=== PATIENT | female | born 1960 | race African-American/Black ===

== ENCOUNTER 2017-07-30 07:23 | Inpatient (IN) | payer MEDICAID ==
[~2017-07-30] VITALS: Ht 167.6 cm; Wt 113.9 kg
[2017-07-30] MEDS ORDERED: IODIXANOL 320MG/ML 100ML BTL IV ONE (08:02)
[2017-07-30] MEDS ORDERED: LIDOCAINE 2%HCL (LOCAL ANESTH.) INJ 20ML MDV ONE (08:02)
[2017-07-30] MEDS ORDERED: MIDAZOLAM HCL 1MG/1ML-2 ML VIAL ONE (08:15)
[2017-07-30] MEDS ORDERED: fentaNYL CITRATE 100 MCG/2 ML VL ONE (08:15)
[2017-07-30] MEDS ORDERED: ANGIOMAX 250 MG VIAL IV ONE ×2 (08:15→08:30)
[2017-07-30] MEDS ORDERED: VERAPAMIL 2.5MG/ML INJ 2ML VIAL IV ONE (08:15)
[2017-07-30] MEDS ORDERED: IOHEXOL 350 MG/ML 100ML IJ ONE (08:15)
[2017-07-30] MEDS ORDERED: SODIUM CHL 0.9% 50 ML ONE (08:30)
[2017-07-30] MEDS ORDERED: ASPirin 325 MG TAB ONE (08:38)
[2017-07-30] MEDS ORDERED: CLOPIDOGREL 300 MG TAB ONE (08:38)
[2017-07-30] MEDS ORDERED: OMEP20CA74 PO (09:12)
[2017-07-30] MEDS ORDERED: METF-371 PO (09:12)
[2017-07-30] MEDS ORDERED: GLIP-115 PO (09:12)
[2017-07-30] MEDS ORDERED: ASPI1TAB37 PO (09:12)
[2017-07-30] MEDS ORDERED: GABA300C10 PO (09:12)
[2017-07-30] MEDS ORDERED: TRAM50TA2 PO (09:12)
[2017-07-30] MEDS ORDERED: INSLANTI SC (09:12)
[2017-07-30] MEDS ORDERED: ATOR20TA PO (09:12)
[2017-07-30] MEDS ORDERED: CLOP75TA28 PO (09:12)
[2017-07-30] MEDS ORDERED: ENAL20TA70 PO (09:12)
[2017-07-30] MEDS ORDERED: LISI2.5T47 PO (09:12)
[2017-07-30] MEDS ORDERED: traMADol HCL 50 MG TAB PO PRN (09:15)
[2017-07-30] MEDS ORDERED: HYDROcodone-ACET 5/325MG TAB PO PRN (09:15)
[2017-07-30] MEDS ORDERED: MORPHINE SULF INJ 2 MG/ML SYRINGE 1ML IV PRN (09:15)
[2017-07-30] MEDS ORDERED: NITROGLYCERIN 0.4 MG SL TAB SL PRN ×2 (09:15→11:00)
[2017-07-30] MEDS ORDERED: ACETAMINOPHEN 500 MG TAB PO PRN (09:15)
[2017-07-30] MEDS ORDERED: DEXTROSE (50%) 50ML SYRG IV PRN (09:30)
[2017-07-30] MEDS ORDERED: glipiZIDE 5 MG TAB ONE (09:57)
[2017-07-30] MEDS ORDERED: LISINOPRIL 5 MG TAB ONE (09:57)
[2017-07-30] MEDS ORDERED: PANTOPRAZOLE 40 MG TAB PO ONE (09:57)
[2017-07-30] MEDS: glipiZIDE 5 MG TAB PO SCH (10:00)
[2017-07-30] MEDS ORDERED: PATIENTS OWN MEDICATION (Enalapril Maleate 1 TAB) PO SCH (10:00)
[2017-07-30] MEDS ORDERED: PATIENTS OWN MEDICATION (Lisinopril 2.5 MG) PO SCH (10:00)
[2017-07-30] MEDS ORDERED: OMEPRAZOLE 20MG/10ML ORAL SUSP PO SCH (10:00)
[2017-07-30] MEDS: PANTOPRAZOLE 40 MG TAB PO SCH (10:06)
[2017-07-30] MEDS: LISINOPRIL 5 MG TAB PO SCH (10:07)
[2017-07-30] MEDS ORDERED: MORPHINE SULFATE 10 MG/ML INJ 1ML SDV IV PRN (11:00)
[2017-07-30] MEDS: InsuLIN REG 1unit/0.01ml Soln (100units/ml) SC SCH ×3 (12:29→21:33)
[2017-07-30] MEDS: ACCU-CHEK COMFORT CURVE STRIP VI SCH ×3 (12:29→21:34)
[2017-07-30] MEDS: SODIUM CHLOR 0.9% PF (SALINE LOCK) 10ML VIAL IV SCH ×2 (14:00→21:32)
[2017-07-30 16:41] VITALS: BP 123/68
[2017-07-30] MEDS: GABAPENTIN 300 MG CAP PO SCH ×2 (16:43→21:32)
[2017-07-30 22:00] VITALS: BP 114/62
[2017-07-30] MEDS ORDERED: INSULIN GLARGINE 40 UNIT SC SCH (22:00)
[2017-07-30] MEDS ORDERED: ATORVASTATIN 20 MG TAB PO SCH (22:00)
[2017-07-30] MEDS ORDERED: INSULIN DETEMIR(LEVEMIR) 1unit/0.01ml Soln (100units/ml) SC SCH (22:00)
[2017-07-31 05:00] VITALS: BP 133/67
[2017-07-31] MEDS: SODIUM CHLOR 0.9% PF (SALINE LOCK) 10ML VIAL IV SCH ×2 (05:35→15:00)
[2017-07-31] MEDS: GABAPENTIN 300 MG CAP PO SCH ×2 (05:35→15:00)
[2017-07-31 05:39] LABS: Basophils # (auto) 0 uL; Basophils % (auto) 0.4 % (0.0-2.0); Eosinophils # (auto) 0.2 uL; Eosinophils % (auto) 3.1 % (0.0-7.0); Hematocrit 36.4 % (36.0-46.0); Hemoglobin 11.9 g/dL (12.2-16.2); Lymphocytes # (auto) 2.3 uL; Lymphocytes % (auto) 47.3 % (10.0-50.0); Mean Corpuscular Hemoglobin 28.1 pg (28.0-32.0); Mean Corpuscular Hgb Conc. 32.6 g/dL (32.0-36.0); Mean Corpuscular Volume 86.2 fL (80.0-100.0); Monocytes # (auto) 0.3 uL; Neutrophils # (auto) 2.1 uL; Neutrophils % (auto) 43.2 % (37.0-80.0); Platelet Count (auto) 205 10^3/uL (140-450); Red Blood Cells 4.23 10^6/uL (4.0-5.20); Red Cell Distribution Width 14.6 % (11.8-14.3); White Blood Cell 4.9 10^3/uL (4.4-10.8)
[2017-07-31 06:02] LABS: BUN/Creatinine Ratio 11.4; Calcium 9.1 mg/dL (8.5-10.1); Potassium 3.8 mmol/L (3.5-5.1)
[2017-07-31] MEDS: ACCU-CHEK COMFORT CURVE STRIP VI SCH ×2 (06:13→11:35)
[2017-07-31] MEDS: InsuLIN REG 1unit/0.01ml Soln (100units/ml) SC SCH ×2 (06:13→11:35)
[2017-07-31 07:40] VITALS: BP 92/54
[2017-07-31 08:00] VITALS: BP 92/54
[2017-07-31] MEDS ORDERED: ASPirin-EC 81 mg tab PO SCH (10:00)
[2017-07-31] MEDS ORDERED: CLOPIDOGREL BISULFATE 75 MG TAB PO SCH (10:00)
[2017-07-31] MEDS: PANTOPRAZOLE 40 MG TAB PO SCH (11:15)
[2017-07-31] MEDS: glipiZIDE 5 MG TAB PO SCH (11:17)
[2017-07-31] MEDS: LISINOPRIL 5 MG TAB PO SCH (11:18)
[2017-07-31 11:30] VITALS: BP 134/79
[2017-07-31 15:45] VITALS: BP 134/79
[2017-07-31 16:40] VITALS: BP 129/76
[2017-10-18] MEDS ORDERED: FLUC200T35 PO (18:17)
[2017-10-18] MEDS ORDERED: ENA10T PO (18:17)
[2017-10-18] MEDS ORDERED: GLIP-115 PO (18:17)
[2017-10-21] MEDS ORDERED: ALB5IS NEB (13:12)
[2017-10-21] MEDS ORDERED: LEVO500T21 PO (13:12)
[2017-10-21] MEDS ORDERED: FLUC100T34 PO (13:12)
[2017-10-21] MEDS ORDERED: FURO20TA PO (13:12)
[2017-10-21] MEDS ORDERED: IPR002IS NEB (13:12)
== END 2017-07-31 16:30 | disposition home or self-care (01) | DRG 175 ==
LOC: CATH 07:23 → TELE-CENTR 07:24
PROVIDERS: ADMIT Internal Medicine; ATTEND Internal Medicine
PROC: 027035Z Dilation of Coronary Artery, One Artery with Two Drug-eluting Intraluminal Devices, Percutaneous Approach (ICD-10-PCS; principal; 2017-07-30)
PROC: 4A023N7 Measurement of Cardiac Sampling and Pressure, Left Heart, Percutaneous Approach (ICD-10-PCS; 2017-07-30)
PROC: B2111ZZ Fluoroscopy of Multiple Coronary Arteries using Low Osmolar Contrast (ICD-10-PCS; 2017-07-30)
DX: I25.10 Atherosclerotic heart disease of native coronary artery without angina pectoris (principal); E11.65 Type 2 diabetes mellitus with hyperglycemia; I10 Essential (primary) hypertension; Z68.41 Body mass index [BMI] 40.0-44.9, adult; E78.5 Hyperlipidemia, unspecified; I25.2 Old myocardial infarction; Z95.5 Presence of coronary angioplasty implant and graft; E66.01 Morbid (severe) obesity due to excess calories
CPT/HCPCS: 36415; 80048; 82962; 83735; 85025; 92928; 93458; 99152; 99153; C1874; J1815; J2250; Q9967

== ENCOUNTER 2019-04-01 18:24 | Inpatient (IN) | payer OTHER, MEDICAID | END 2019-04-04 16:00 | disposition home health service (06) | LOC: ER 18:24 → TELE 18:25 → TELE-WESTW 23:09 | DX: I25.110 Atherosclerotic heart disease of native coronary artery with unstable angina pectoris (principal); I50.43 Acute on chronic combined systolic (congestive) and diastolic (congestive) heart failure; E11.65 Type 2 diabetes mellitus with hyperglycemia; E66.01 Morbid (severe) obesity due to excess calories; E78.5 Hyperlipidemia, unspecified; G62.9 Polyneuropathy, unspecified; I11.0 Hypertensive heart disease with heart failure; I25.2 Old myocardial infarction; Z98.61 Coronary angioplasty status; I25.5 Ischemic cardiomyopathy ==

== ENCOUNTER 2019-04-12 21:07 | Inpatient (IN) | payer OTHER, MEDICAID ==
[~2019-04-12] VITALS: Ht 167.6 cm; Wt 68.8 kg
[~2019-04-12 21:07] MED LIST: ALB5IS NEB; ASPI1TAB37 PO; CARV6.2551 PO; CLOP75TA28 PO; FLUC100T34 PO; FLUC200T50 PO; FURO1TAB33 PO; FURO40TA4 PO; GABA300C10 PO; GLIP5TAB12 PO; HYDR-4833 PO; INSLANTI SC; IPR002IS NEB; LISI2.5T47 PO; METF-371 PO; OMEP20CA74 PO; POTA10TA51 PO; SACU1TAB PO; TRAM50TA2 PO
[2019-04-12 22:06] LABS: Basophils # (auto) 0.2 uL; Eosinophils # (auto) 0.1 uL; Hemoglobin 12.9 g/dL (12.2-16.2); Lymphocytes # (auto) 2.7 uL; Lymphocytes % (auto) 40.9 % (10.0-50.0); Mean Corpuscular Hemoglobin 28.2 pg (28.0-32.0); Mean Corpuscular Hgb Conc. 33.1 g/dL (32.0-36.0); Mean Corpuscular Volume 85.2 fL (80.0-100.0); Monocytes # (auto) 0.4 uL; Monocytes % (auto) 5.5 % (0.0-12.0); Neutrophils # (auto) 3.2 uL; Neutrophils % (auto) 48.6 % (37.0-80.0); Nucleated Red Blood Cells % 0.2 %; Platelet Count (auto) 255 10^3/uL (140-450); Red Blood Cells 4.58 10^6/uL (4.0-5.20); Red Cell Distribution Width 17.4 % (11.8-14.3); White Blood Cell 6.6 10^3/uL (4.4-10.8)
[2019-04-12 22:16] LABS: Urine Bacteria FEW /hpf (None Seen); Urine Blood TRACE /uL (Negative); Urine Mucus FEW (None Seen); Urine Specific Gravity 1.023 (1.001-1.035); Urine WBC 67 /hpf (0 - 5)
[2019-04-12 22:20] LABS: INR 1.14 (0.9-1.15); Partial Thromboplastin Time 24.5 sec (23.64-32.05)
[2019-04-12 22:38] LABS: Alanine Aminotransferase 13 U/L (13-56); Anion Gap 9 (5-15); Aspartate Aminotransferase 15 U/L (15-37); BUN/Creatinine Ratio 17.6; Blood Urea Nitrogen 21 mg/dL (7-18); Carbon Dioxide 21 mmol/L (21-32); Chloride 108 mmol/L (98-107); GFR African American 60 mL/min; GFR Non-African American 49 mL/min; Glucose 220 mg/dL (74-106); Potassium 3.8 mmol/L (3.5-5.1); Sodium 138 mmol/L (136-145)
[2019-04-12 22:43] LABS: Alkaline Phosphatase 114 U/L (45-117); Bilirubin, Total 0.8 mg/dL (0.2-1.0); Total Protein 7.1 g/dL (6.4-8.2)
[2019-04-13] MEDS ORDERED: NITROGLYCERIN 0.4 MG SL TAB SL PRN (06:15)
[2019-04-13] MEDS ORDERED: MORPHINE SULF INJ 2 MG/ML SYRINGE 1ML IV PRN ×2 (06:15)
[2019-04-13] MEDS ORDERED: ACETAMINOPHEN 500 MG TAB PO PRN (06:15)
[2019-04-13] MEDS ORDERED: HYDROcodone-ACET 5/325MG TAB PO PRN (06:15)
[2019-04-13] MEDS ORDERED: ONDANSETRON HCL 4 MG/2 ML VIAL IV PRN (06:15)
[2019-04-13] MEDS ORDERED: BUMETANIDE 1mg/4ml VIAL (0.25mg/ml) IV ONE (06:15)
[2019-04-13] MEDS ORDERED: DEXTROSE (50%) 50ML SYRG IV PRN (06:15)
[2019-04-13 06:30] VITALS: BP 121/61
[2019-04-13] MEDS: ACCU-CHEK COMFORT CURVE STRIP VI SCH ×4 (08:19→22:09)
[2019-04-13] MEDS: INSULIN LANTUS (GLARGINE) 1 /0.01ml (100units/ml) SC SCH (08:35)
[2019-04-13] MEDS: InsuLIN REG 1unit/0.01ml Soln (100units/ml) SC SCH ×4 (08:35→22:10)
[2019-04-13 09:40] VITALS: BP 106/63
--- NOTE | 2019-04-13 10:00 | NUR ---
Telemetry admit from ER Admitted to Telemetry unit after report was received. Alert and oriented. Patient oriented to unit, room, bed, and unit policies regarding patient care and visiting hours. Patient now on continuous telemetry monitoring, tele box # [phone]. Patient placed on bedside oxygen at 3L via NC, weighed by bedscale and encouraged to call if they need something. All questions and concerns addressed, patient verbalized understanding.
[2019-04-13] MEDS: CARVEDILOL 3.125 MG TAB PO SCH ×2 (11:00→12:23)
[2019-04-13] MEDS: ASPirin-EC 81 mg tab PO SCH (11:00)
[2019-04-13] MEDS: SACUBITRIL-VALSARTAN 24mg/26mg TAB PO SCH ×2 (11:00→21:54)
[2019-04-13] MEDS: CLOPIDOGREL BISULFATE 75 MG TAB PO SCH (11:00)
[2019-04-13] MEDS: FAMOTIDINE 20 MG TAB PO SCH (11:00)
[2019-04-13] MEDS: cefTRIAXone 1GM/50ML D5W 50 ML IV SCH (11:00)
[2019-04-13 13:00] VITALS: BP 112/72
[2019-04-13] MEDS: FUROSEMIDE 40 MG/4 ML VIAL IV SCH ×2 (13:09→21:56)
[2019-04-13] MEDS: GABAPENTIN 300 MG CAP PO SCH ×2 (14:05→21:54)
[2019-04-13 17:00] VITALS: BP 105/70
[2019-04-13] MEDS: IPRATROPIUM BROM 0.5 MG/2.5ML INH SOL NEB PRN (19:54)
[2019-04-13] MEDS: ALBUTEROL SULF 2.5 MG/0.5ML(0.5%) NEB SOLN NEB PRN (19:54)
[2019-04-13 21:59] VITALS: BP 120/51
[2019-04-13] MEDS ORDERED: ATORVASTATIN 20 MG TAB PO SCH (22:00)
--- NOTE | 2019-04-13 22:14 | NUR ---
DR. Yeimy VELAZQUEZ PAGED RE: PATIENT'S DECREASED BLOOD PRESSURE, LASIX IV HELD. MESSAGE LEFT AT MD'S VOICEMAIL WITH CALL BACK INFORMATION PROVIDED.
--- NOTE | 2019-04-13 22:18 | NUR ---
DR.T. VELAZQUEZ RETURNS PAGE NOTIFIED OF PATIENT'S BLOOD PRESSURE RANGING FROM 88/55 TO 101/63. NEW ORDERS RECEIVED TO HOLD PM DOSE OF LASIX 80MG IV. PER DR. VELAZQUEZ DO NOT ADMINISTER 1X DOSE OF BUMEX, DISCONTINUE ORDER. IF SBP<85, GIVE PATIENT 250ML NS BOLUS. ALL ORDERS READ BACK AND VERIFIED.
[2019-04-14 05:12] LABS: Basophils # (auto) 0.1 uL; Basophils % (auto) 1.2 % (0.0-2.0); Eosinophils # (auto) 0.2 uL; Eosinophils % (auto) 4.5 % (0.0-7.0); Hematocrit 38.8 % (36.0-46.0); Hemoglobin 12.8 g/dL (12.2-16.2); Lymphocytes # (auto) 2.4 uL; Lymphocytes % (auto) 52.1 % (10.0-50.0); Mean Corpuscular Volume 84.8 fL (80.0-100.0); Monocytes # (auto) 0.3 uL; Monocytes % (auto) 6.8 % (0.0-12.0); Neutrophils # (auto) 1.6 uL; Neutrophils % (auto) 35.4 % (37.0-80.0); Nucleated Red Blood Cells % 0.2 %; Platelet Count (auto) 209 10^3/uL (140-450); Red Blood Cells 4.58 10^6/uL (4.0-5.20); Red Cell Distribution Width 17.2 % (11.8-14.3); White Blood Cell 4.5 10^3/uL (4.4-10.8)
[2019-04-14 05:29] LABS: BUN/Creatinine Ratio 19.2; Calcium 8.8 mg/dL (8.5-10.1); Magnesium 1.8 mg/dL (1.6-2.6); Potassium 3.6 mmol/L (3.5-5.1)
[2019-04-14 06:00] VITALS: BP 104/62
[2019-04-14] MEDS: IPRATROPIUM BROM 0.5 MG/2.5ML INH SOL NEB PRN (06:19)
[2019-04-14] MEDS: ALBUTEROL SULF 2.5 MG/0.5ML(0.5%) NEB SOLN NEB PRN (06:19)
[2019-04-14] MEDS: INSULIN LANTUS (GLARGINE) 1 /0.01ml (100units/ml) SC SCH (06:21)
[2019-04-14] MEDS: InsuLIN REG 1unit/0.01ml Soln (100units/ml) SC SCH ×3 (06:21→17:00)
[2019-04-14] MEDS: ACCU-CHEK COMFORT CURVE STRIP VI SCH ×3 (06:21→17:00)
[2019-04-14] MEDS: GABAPENTIN 300 MG CAP PO SCH ×2 (06:21→14:21)
[2019-04-14 09:00] VITALS: BP 102/67
[2019-04-14] MEDS: cefTRIAXone 1GM/50ML D5W 50 ML IV SCH (09:14)
[2019-04-14] MEDS: SACUBITRIL-VALSARTAN 24mg/26mg TAB PO SCH (09:15)
[2019-04-14] MEDS: FUROSEMIDE 40 MG/4 ML VIAL IV SCH (09:15)
[2019-04-14] MEDS: ASPirin-EC 81 mg tab PO SCH (09:15)
[2019-04-14] MEDS: CLOPIDOGREL BISULFATE 75 MG TAB PO SCH (09:15)
[2019-04-14] MEDS: FAMOTIDINE 20 MG TAB PO SCH (09:15)
[2019-04-14] MEDS ORDERED: FUROSEMIDE 40 MG/4 ML VIAL IV SCH (10:00)
[2019-04-14] MEDS ORDERED: FURO1TAB31 PO (12:41)
[2019-04-14] MEDS ORDERED: CEPH-37 PO (12:41)
[2019-04-14 13:00] VITALS: BP 100/68
--- NOTE | 2019-04-14 13:50 | NUR ---
DR. CROWELL CALLED PER DR. CROWELL PT IS CLEARED FOR DISCHARGE.
--- NOTE | 2019-04-14 14:58 | NUR ---
Franchesca of social work associate made aware pt has order for SNF placement back to [facility], per Franchesca MURO is reviewing the papers and she will let me know for update.
[2019-04-14 17:00] VITALS: BP 103/67
--- NOTE | 2019-04-14 17:09 | NUR ---
Discharge planning per consult regarding cancellation of home safety eval. Patient was just seen by [facility] on 04.08.19. and is on the [facility] program and will resume services upon discharge. Placed a call to Dr. Judith Taylor and asked him to call me regarding the dc plan. He called back, I advised him of the status of the home health referral, he advised it per his order it was okay to cancel the home safety eval as long as she had follow up services. I advised she did and I will fax [facility] her dc summary upon discharge for continuity of care.
[2019-04-14 17:43] VITALS: BP 103/67
--- NOTE | 2019-04-14 19:30 | NUR ---
CARE ENDORSED WITH THADDEUS RODARTE, PT STILL WAITING FOR HER RIDE HOME.
== END 2019-04-14 20:11 | disposition home health service (06) | DRG 291 ==
LOC: EDBD 21:07 → ER 21:14 → TELE 21:15 → TELE-CENTR 04-13 10:45
PROVIDERS: ADMIT Nurse Practitioner Acute Care; ATTEND Internal Medicine
DX: I13.0 Hypertensive heart and chronic kidney disease with heart failure and stage 1 through stage 4 chronic kidney disease, or unspecified chronic kidney disease (principal); J96.00 Acute respiratory failure, unspecified whether with hypoxia or hypercapnia; I50.43 Acute on chronic combined systolic (congestive) and diastolic (congestive) heart failure; N39.0 Urinary tract infection, site not specified; I42.9 Cardiomyopathy, unspecified; N18.3 Chronic kidney disease, stage 3 (moderate); E11.22 Type 2 diabetes mellitus with diabetic chronic kidney disease; J44.9 Chronic obstructive pulmonary disease, unspecified; E66.01 Morbid (severe) obesity due to excess calories; I27.21 Secondary pulmonary arterial hypertension; K21.9 Gastro-esophageal reflux disease without esophagitis; E11.40 Type 2 diabetes mellitus with diabetic neuropathy, unspecified; E78.5 Hyperlipidemia, unspecified; E86.9 Volume depletion, unspecified; I95.9 Hypotension, unspecified; I25.10 Atherosclerotic heart disease of native coronary artery without angina pectoris; I08.1 Rheumatic disorders of both mitral and tricuspid valves; I25.2 Old myocardial infarction; Z79.02 Long term (current) use of antithrombotics/antiplatelets; Z68.24 Body mass index [BMI] 24.0-24.9, adult; Z79.4 Long term (current) use of insulin; Z79.899 Other long term (current) drug therapy; Z80.1 Family history of malignant neoplasm of trachea, bronchus and lung; Z82.49 Family history of ischemic heart disease and other diseases of the circulatory system; Z83.3 Family history of diabetes mellitus; Z87.891 Personal history of nicotine dependence; Z80.3 Family history of malignant neoplasm of breast; Z91.19 Patient's noncompliance with other medical treatment and regimen; Z95.5 Presence of coronary angioplasty implant and graft; Z95.810 Presence of automatic (implantable) cardiac defibrillator; Z99.81 Dependence on supplemental oxygen
CPT/HCPCS: 36415; 71045; 80048; 80053; 81001; 82962; 83036; 83735; 83880; 84443; 84484; 85025; 85610; 85730; 87081; 87086; 93005; 94640; 94761; 96365; 96372; G0378; J0696; J1815

== ENCOUNTER 2019-09-15 21:14 | Emergency (ER) | payer OTHER, MEDICAID ==
[~2019-09-15] VITALS: Ht 167.6 cm; Wt 0.5 kg
[~2019-09-15 21:14] MED LIST changes: -FLUC100T34 PO; +FURO1TAB31 PO; -FURO1TAB33 PO; -FURO40TA4 PO; -GABA300C10 PO; -LISI2.5T47 PO; -METF-371 PO; -TRAM50TA2 PO
[2019-09-15 23:12] LABS: Basophils # (auto) 0.1 10 ^3/uL (0-0.2); Basophils % (auto) 0.9 % (0.0-2.0); Eosinophils # (auto) 0.1 10 ^3/uL (0-0.8); Hematocrit 46.6 % (36.0-46.0); Hemoglobin 14.7 g/dL (12.2-16.2); Lymphocytes # (auto) 2.9 10 ^3/uL (0.4-5.4); Lymphocytes % (auto) 34.8 % (10.0-50.0); Mean Corpuscular Hgb Conc. 31.5 g/dL (32.0-36.0); Mean Corpuscular Volume 82.6 fL (80.0-100.0); Monocytes # (auto) 0.3 10 ^3/uL (0-1.3); Monocytes % (auto) 4.1 % (0.0-12.0); Neutrophils # (auto) 4.9 10 ^3/uL (1.6-8.6); Neutrophils % (auto) 59.2 % (37.0-80.0); Nucleated Red Blood Cells % 0.2 %; Platelet Count (auto) 196 10^3/uL (140-450); Red Blood Cells 5.63 10^6/uL (4.0-5.20); Red Cell Distribution Width 18.9 % (11.8-14.3); White Blood Cell 8.4 10^3/uL (4.4-10.8)
[2019-09-15 23:20] LABS: Calcium 9.6 mg/dL (8.5-10.1); Chloride 110 mmol/L (98-107); Potassium 4.2 mmol/L (3.5-5.1); Sodium 138 mmol/L (136-145)
[2019-09-15 23:24] LABS: Alanine Aminotransferase 12 U/L (13-56); Anion Gap 8 (5-15); Aspartate Aminotransferase 18 U/L (15-37); BUN/Creatinine Ratio 15.3; Blood Urea Nitrogen 15 mg/dL (7-18); Carbon Dioxide 20 mmol/L (21-32); GFR African American 75 mL/min; GFR Non-African American 62 mL/min; Glucose 226 mg/dL (74-106)
[2019-09-15 23:26] LABS: Alkaline Phosphatase 88 U/L (45-117); Bilirubin, Total 0.9 mg/dL (0.2-1.0); Total Protein 7.5 g/dL (6.4-8.2)
[2019-09-16] MEDS ORDERED: methylPREDNISolone SOD SUCC 125 MG/2 ML VL IV ONE (01:45)
[2019-09-16] MEDS ORDERED: SODIUM CHLORIDE 0.9% 1,000 ML IV ONE (01:45)
[2019-09-16] MEDS ORDERED: FAMOTIDINE (10MG/ML) 2ML VL IV ONE (01:45)
[2019-09-16] MEDS ORDERED: diphenhdrAMINE HCL 50 MG/1 ML VL IV ONE (01:45)
[2019-09-16 02:00] VITALS: BP 117/68
[2019-09-16] MEDS ORDERED: FUROSEMIDE 20 MG/2 ML VIAL IV ONE (02:15)
[2019-09-16 02:44] LABS: INR 1.2 (0.9-1.15)
== END 2019-09-16 03:14 | disposition home or self-care (01) ==
LOC: ER 21:14 → EDBD 21:14 → ER 09-16 03:14
DX: T78.40XA Allergy, unspecified, initial encounter (principal); E11.9 Type 2 diabetes mellitus without complications; J44.9 Chronic obstructive pulmonary disease, unspecified; E78.5 Hyperlipidemia, unspecified; I11.0 Hypertensive heart disease with heart failure; I50.9 Heart failure, unspecified; I25.10 Atherosclerotic heart disease of native coronary artery without angina pectoris; Z95.0 Presence of cardiac pacemaker; Z87.891 Personal history of nicotine dependence; Z98.61 Coronary angioplasty status; Z79.82 Long term (current) use of aspirin; Z79.899 Other long term (current) drug therapy; X58.XXXA Exposure to other specified factors, initial encounter
CPT/HCPCS: 36415; 71045; 80053; 83880; 84484; 85025; 85610; 93005; 96374; 96375; 99285; J1200; J2930; J3490; J7030

== ENCOUNTER 2019-09-22 17:42 | Inpatient (IN) | payer OTHER, MEDICAID ==
[~2019-09-22] VITALS: Ht 165.1 cm; Wt 124.8 kg
[2019-09-22 18:21] LABS: Basophils # (auto) 0.1 10 ^3/uL (0-0.2); Basophils % (auto) 1.2 % (0.0-2.0); Eosinophils # (auto) 0.2 10 ^3/uL (0-0.8); Eosinophils % (auto) 2.4 % (0.0-7.0); Hemoglobin 13.1 g/dL (12.2-16.2); Lymphocytes # (auto) 2.9 10 ^3/uL (0.4-5.4); Lymphocytes % (auto) 42.6 % (10.0-50.0); Mean Corpuscular Hemoglobin 27.6 pg (28.0-32.0); Mean Corpuscular Hgb Conc. 32.8 g/dL (32.0-36.0); Mean Corpuscular Volume 84.2 fL (80.0-100.0); Monocytes # (auto) 0.4 10 ^3/uL (0-1.3); Monocytes % (auto) 5.3 % (0.0-12.0); Neutrophils # (auto) 3.3 10 ^3/uL (1.6-8.6); Neutrophils % (auto) 48.5 % (37.0-80.0); Nucleated Red Blood Cells % 0.2 %; Platelet Count (auto) 194 10^3/uL (140-450); Red Blood Cells 4.76 10^6/uL (4.0-5.20); Red Cell Distribution Width 19.3 % (11.8-14.3); White Blood Cell 6.7 10^3/uL (4.4-10.8)
[2019-09-22] MEDS ORDERED: methylPREDNISolone SOD SUCC 125 MG/2 ML VL IV ONE (18:30)
[2019-09-22] MEDS ORDERED: IPRATROPIUM BROM 0.5 MG/2.5ML INH SOL HHN ONE (18:30)
[2019-09-22] MEDS ORDERED: ALBUTEROL SULF 2.5 MG/0.5ML(0.5%) NEB SOLN HHN ONE (18:30)
[2019-09-22 18:36] LABS: INR 1.19 (0.9-1.15); Partial Thromboplastin Time 26.4 sec (23.64-32.05)
[2019-09-22 18:40] LABS: Alanine Aminotransferase 15 U/L (13-56); Albumin 3.4 g/dL (3.4-5.0); Anion Gap 6 (5-15); Aspartate Aminotransferase 12 U/L (15-37); BUN/Creatinine Ratio 17.2; Blood Urea Nitrogen 17 mg/dL (7-18); Calcium 9.7 mg/dL (8.5-10.1); Carbon Dioxide 23 mmol/L (21-32); Chloride 104 mmol/L (98-107); GFR African American 74 mL/min; GFR Non-African American 61 mL/min; Glucose 238 mg/dL (74-106); Potassium 3.4 mmol/L (3.5-5.1); Sodium 133 mmol/L (136-145)
[2019-09-22 18:44] LABS: Alkaline Phosphatase 113 U/L (45-117); Bilirubin, Total 0.6 mg/dL (0.2-1.0); Total Protein 7.9 g/dL (6.4-8.2)
[2019-09-22] MEDS ORDERED: FUROSEMIDE 40 MG/4 ML VIAL IV ONE (19:15)
[2019-09-22] MEDS ORDERED: HYDROcodone-ACET 5/325MG TAB PO PRN (21:45)
[2019-09-22] MEDS ORDERED: ONDANSETRON HCL 4 MG/2 ML VIAL IV PRN (21:45)
[2019-09-22] MEDS ORDERED: TEMAZEPAM 15 MG CAP PO PRN (21:45)
[2019-09-22] MEDS ORDERED: ACETAMINOPHEN 325 MG TAB PO PRN (21:45)
[2019-09-22] MEDS ORDERED: DEXTROSE (50%) 50ML SYRG IV PRN (21:45)
[2019-09-22] MEDS ORDERED: MORPHINE SULF INJ 2 MG/ML SYRINGE 1ML IV PRN (22:00)
[2019-09-22] MEDS ORDERED: NITROGLYCERIN 0.4 MG SL TAB SL PRN (22:00)
[2019-09-22 22:50] LABS: Urine Bacteria FEW /hpf (None Seen); Urine Blood Negative /uL (Negative); Urine Hyaline Cast FEW /lpf (0 - 2); Urine Specific Gravity 1.009 (1.001-1.035); Urine WBC 2 /hpf (0 - 5)
[2019-09-22] MEDS: SACUBITRIL-VALSARTAN 24mg/26mg TAB PO SCH (23:25)
[2019-09-22] MEDS: CARVEDILOL 3.125 MG TAB PO SCH (23:26)
[2019-09-22] MEDS: FAMOTIDINE 20 MG TAB PO SCH (23:26)
[2019-09-22] MEDS: ACCU-CHEK COMFORT CURVE STRIP VI SCH (23:27)
[2019-09-22] MEDS: POTASSIUM CHL 10 Meq TABLET PO SCH (23:27)
[2019-09-22] MEDS: InsuLIN REG 1unit/0.01ml Soln (100units/ml) SC SCH (23:32)
[2019-09-23] VITALS (7 sets, daily range): BP systolic 98–147; BP diastolic 63–98
[2019-09-23] MEDS: ALBUTEROL SULF 2.5 MG/0.5ML(0.5%) NEB SOLN NEB SCH ×5 (01:09→23:51)
[2019-09-23 05:40] LABS: Basophils # (auto) 0 10 ^3/uL (0-0.2); Calcium 9.7 mg/dL (8.5-10.1); Eosinophils # (auto) 0 10 ^3/uL (0-0.8); Hematocrit 37.3 % (36.0-46.0); Hemoglobin 11.8 g/dL (12.2-16.2); Monocytes # (auto) 0.1 10 ^3/uL (0-1.3); Potassium 4.4 mmol/L (3.5-5.1); White Blood Cell 5.5 10^3/uL (4.4-10.8)
[2019-09-23 05:42] LABS: BUN/Creatinine Ratio 13.4
[2019-09-23 05:49] LABS: Basophils % (auto) 0.1 % (0.0-2.0); Lymphocytes # (auto) 0.9 10 ^3/uL (0.4-5.4); Lymphocytes % (auto) 16.2 % (10.0-50.0); Mean Corpuscular Hemoglobin 26.5 pg (28.0-32.0); Mean Corpuscular Hgb Conc. 31.6 g/dL (32.0-36.0); Neutrophils # (auto) 4.6 10 ^3/uL (1.6-8.6); Neutrophils % (auto) 82.7 % (37.0-80.0); Nucleated Red Blood Cells % 0.3 %; Platelet Count (auto) 187 10^3/uL (140-450); Red Blood Cells 4.45 10^6/uL (4.0-5.20); Red Cell Distribution Width 19.9 % (11.8-14.3)
[2019-09-23] MEDS: FUROSEMIDE 40 MG/4 ML VIAL IV SCH ×2 (06:22→17:49)
[2019-09-23] MEDS: ACCU-CHEK COMFORT CURVE STRIP VI SCH ×3 (06:22→17:51)
[2019-09-23] MEDS: InsuLIN REG 1unit/0.01ml Soln (100units/ml) SC SCH ×3 (06:27→17:53)
[2019-09-23] MEDS: SACUBITRIL-VALSARTAN 24mg/26mg TAB PO SCH ×2 (10:40→22:00)
[2019-09-23] MEDS: CARVEDILOL 3.125 MG TAB PO SCH ×2 (10:41→22:00)
[2019-09-23] MEDS: POTASSIUM CHL 10 Meq TABLET PO SCH (10:41)
[2019-09-23] MEDS: FAMOTIDINE 20 MG TAB PO SCH ×2 (10:41→22:16)
[2019-09-24] MEDS: ACCU-CHEK COMFORT CURVE STRIP VI SCH ×4 (00:17→17:48)
[2019-09-24] MEDS: InsuLIN REG 1unit/0.01ml Soln (100units/ml) SC SCH ×4 (00:22→17:49)
[2019-09-24 05:30] VITALS: BP 101/41
[2019-09-24] MEDS: FUROSEMIDE 40 MG/4 ML VIAL IV SCH ×2 (06:22→17:45)
[2019-09-24] MEDS: ALBUTEROL SULF 2.5 MG/0.5ML(0.5%) NEB SOLN NEB SCH ×3 (06:39→18:52)
[2019-09-24 08:00] VITALS: BP 93/59
[2019-09-24 09:00] VITALS: BP 93/59
[2019-09-24] MEDS: POTASSIUM CHL 10 Meq TABLET PO SCH (10:03)
[2019-09-24] MEDS: FAMOTIDINE 20 MG TAB PO SCH (10:05)
[2019-09-24] MEDS: SACUBITRIL-VALSARTAN 24mg/26mg TAB PO SCH (10:05)
[2019-09-24] MEDS: CARVEDILOL 3.125 MG TAB PO SCH (10:05)
[2019-09-24 13:00] VITALS: BP 103/66
[2019-09-24 17:06] VITALS: BP 117/75
[2019-09-24 17:57] VITALS: BP 117/75
== END 2019-09-24 19:35 | disposition home or self-care (01) | DRG 291 ==
LOC: ER 17:42 → EDBD 17:42 → TELE 17:43 → TELE-WESTW 23:02
PROVIDERS: ADMIT Nurse Practitioner; ATTEND Internal Medicine
DX: I13.0 Hypertensive heart and chronic kidney disease with heart failure and stage 1 through stage 4 chronic kidney disease, or unspecified chronic kidney disease (principal); I50.43 Acute on chronic combined systolic (congestive) and diastolic (congestive) heart failure; J96.21 Acute and chronic respiratory failure with hypoxia; Z68.42 Body mass index [BMI] 45.0-49.9, adult; E66.01 Morbid (severe) obesity due to excess calories; I25.10 Atherosclerotic heart disease of native coronary artery without angina pectoris; E11.22 Type 2 diabetes mellitus with diabetic chronic kidney disease; N18.9 Chronic kidney disease, unspecified; E11.65 Type 2 diabetes mellitus with hyperglycemia; R55 Syncope and collapse; Z88.0 Allergy status to penicillin; Z86.73 Personal history of transient ischemic attack (TIA), and cerebral infarction without residual deficits; Z99.81 Dependence on supplemental oxygen; R29.700 NIHSS score 0; I25.2 Old myocardial infarction; Z80.1 Family history of malignant neoplasm of trachea, bronchus and lung; Z83.3 Family history of diabetes mellitus; Z82.49 Family history of ischemic heart disease and other diseases of the circulatory system; Z80.3 Family history of malignant neoplasm of breast
CPT/HCPCS: 36415; 70450; 71045; 80048; 80053; 81001; 82962; 83880; 84484; 85025; 85610; 85730; 93005; 94640; 94644; 96374; 96375; 99291; G0378; J1815

== ENCOUNTER 2019-11-28 13:58 | Inpatient (IN) | payer OTHER, MEDICAID ==
[~2019-11-28] VITALS: Ht 167.6 cm; Wt 132.0 kg
[~2019-11-28 13:58] MED LIST changes: -FLUC200T50 PO
[2019-11-28] MEDS ORDERED: SODIUM CHLORIDE 0.9% 1,000 ML IV ONE (14:13)
[2019-11-28 14:50] LABS: Basophils # (auto) 0.1 10 ^3/uL (0-0.2); Basophils % (auto) 2.3 % (0.0-2.0); Eosinophils # (auto) 0.1 10 ^3/uL (0-0.8); Eosinophils % (auto) 1.6 % (0.0-7.0); Hematocrit 37.9 % (36.0-46.0); Hemoglobin 12.5 g/dL (12.2-16.2); Lymphocytes # (auto) 2.7 10 ^3/uL (0.4-5.4); Mean Corpuscular Hgb Conc. 32.9 g/dL (32.0-36.0); Mean Corpuscular Volume 85.1 fL (80.0-100.0); Monocytes # (auto) 0.4 10 ^3/uL (0-1.3); Monocytes % (auto) 5.8 % (0.0-12.0); Neutrophils # (auto) 2.9 10 ^3/uL (1.6-8.6); Neutrophils % (auto) 46.3 % (37.0-80.0); Nucleated Red Blood Cells % 0.3 %; Platelet Count (auto) 200 10^3/uL (140-450); Red Blood Cells 4.46 10^6/uL (4.0-5.20); Red Cell Distribution Width 17.9 % (11.8-14.3); White Blood Cell 6.2 10^3/uL (4.4-10.8)
[2019-11-28 15:04] LABS: INR 1.23 (0.9-1.15); Partial Thromboplastin Time 25.3 sec (23.64-32.05)
[2019-11-28 15:07] LABS: Alanine Aminotransferase 13 U/L (13-56); Albumin 3.3 g/dL (3.4-5.0); Anion Gap 8 (5-15); Aspartate Aminotransferase 13 U/L (15-37); BUN/Creatinine Ratio 16.5; Blood Urea Nitrogen 17 mg/dL (7-18); Carbon Dioxide 22 mmol/L (21-32); Chloride 107 mmol/L (98-107); GFR African American 71 mL/min; GFR Non-African American 58 mL/min; Glucose 216 mg/dL (74-106); Magnesium 1.8 mg/dL (1.6-2.6); Sodium 137 mmol/L (136-145)
[2019-11-28 15:12] LABS: Alkaline Phosphatase 105 U/L (45-117); Bilirubin, Total 0.9 mg/dL (0.2-1.0)
[2019-11-28] MEDS ORDERED: SPIRONOLACTONE 25 MG TAB PO ONE (15:45)
[2019-11-28] MEDS ORDERED: FUROSEMIDE 40 MG/4 ML VIAL IV ONE (15:45)
[2019-11-28] MEDS ORDERED: IOHEXOL 350 MG/ML 100ML IJ ONE ×2 (16:03)
[2019-11-28] MEDS ORDERED: DEXTROSE (50%) 50ML SYRG IV PRN (16:30)
[2019-11-28] MEDS ORDERED: NITROGLYCERIN 0.4 MG SL TAB SL PRN (16:30)
[2019-11-28] MEDS ORDERED: MORPHINE SULF INJ 2 MG/ML SYRINGE 1ML IV PRN (16:30)
[2019-11-28] MEDS: InsuLIN REG 1unit/0.01ml Soln (100units/ml) SC SCH ×2 (17:00→22:52)
[2019-11-28] MEDS: ACCU-CHEK COMFORT CURVE STRIP VI SCH ×2 (17:35→22:53)
[2019-11-28 21:00] VITALS: BP 131/90
--- NOTE | 2019-11-28 21:00 | NUR ---
Patient Assessed upon admission Patient arrived with a linn catheter placed. Patient AOX4 with no signs of respiratory distress. IV in right upper arm, saline locked, patent and no signs of infection. Currently on 3L O2 NC sat at 97%. safety precautions in place w/ HOB at 30 degrees, bed in lowest position, and side rails up X2.
--- NOTE | 2019-11-28 22:35 | NUR ---
Patient arrived to unit from Addendum: 11/29/19 at 0231 by PIERRE DOMINGUEZ RN RN Patient arrived at 203411/28/19 to unit
[2019-11-28] MEDS: SACUBITRIL-VALSARTAN 24mg/26mg TAB PO SCH (22:50)
[2019-11-29 05:32] VITALS: BP 130/83
[2019-11-29 06:44] LABS: BUN/Creatinine Ratio 19.1; Calcium 9.4 mg/dL (8.5-10.1); Potassium 3.9 mmol/L (3.5-5.1)
[2019-11-29] MEDS: ACCU-CHEK COMFORT CURVE STRIP VI SCH ×4 (06:44→22:50)
[2019-11-29] MEDS: InsuLIN REG 1unit/0.01ml Soln (100units/ml) SC SCH ×4 (06:44→22:49)
--- NOTE | 2019-11-29 07:50 | NUR ---
Opening Note Assumed pt care from NOC RN. Pt is a/ox4 with no s/s of distress. Pt is currently sitting upright in bed on 2L NC with mild complaint of SOB. Pt states that her SOB has improved since being admitted; encouraged pt to take deep breaths and sit up in bed. Discussed POC with pt and pending cardio consult; pt verbalized understanding. Richey is present, free of kinks and draining to gravity. Safety measures maintained with call light within reach, bed in lowest position and side rails up. Will continue to monitor.
--- NOTE | 2019-11-29 08:23 | NUR ---
Pt C/O Pain Pt states that she is experiencing pain 8/10 in her legs and back due to history of arthritis; describing the pain as aching in nature. At this time, pt does not have any PRNs for pain relief. Called Dr Jacinto and left a message. Will continue to monitor. Addendum: 11/29/19 at 0826 by SHANEKA DALLAS RN RN paged back. Orders given, read back and verified. Will implement.
[2019-11-29] MEDS ORDERED: HYDROcodone-ACET 5/325MG TAB PO PRN (08:30)
[2019-11-29 09:00] VITALS: BP 119/81
[2019-11-29] MEDS: SACUBITRIL-VALSARTAN 24mg/26mg TAB PO SCH ×2 (09:26→22:43)
[2019-11-29] MEDS: ASPirin 81 mg TAB PO SCH (09:26)
[2019-11-29] MEDS: CLOPIDOGREL BISULFATE 75 MG TAB PO SCH (09:26)
--- NOTE | 2019-11-29 09:50 | NUR ---
POM Pt's medications taken to pharmacy.
--- NOTE | 2019-11-29 13:10 | NUR ---
Pt C/O Dizziness Pt states that she is experiencing some mild dizziness. Provided pt with orange juice and crackers. Will continue to monitor. Addendum: 11/29/19 at 1357 by SHANEKA DALLAS RN RN Pt states that she feels "a little better". Will continue to monitor.
[2019-11-29 13:26] VITALS: BP 111/78
[2019-11-29 16:54] VITALS: BP 112/80
[2019-11-29] MEDS: FUROSEMIDE 40 MG/4 ML VIAL IV SCH (17:30)
--- NOTE | 2019-11-29 19:40 | NUR ---
Opening Note Assumed care of patient, awake and alert x4. No S/S of distress/SOB or pain. Instructed on POC and to call for assist, will continue to monitor for changes.
[2019-11-29 21:53] VITALS: BP 128/83
[2019-11-29] MEDS: CARVEDILOL 3.125 MG TAB PO SCH (22:46)
--- NOTE | 2019-11-30 | NUR ---
IV D/C Patient complains of pain at IV site in upper right arm. Upon assessment, IV catheter was out of vein, skin was dry with no bleeding. Clean technique was used to completely remove dressing, catheter was completely intact.
[2019-11-30 04:54] VITALS: BP 114/67
--- NOTE | 2019-11-30 05:30 | NUR ---
IV insertion IV access obtained, via clean sterile technique by inserting 22 gauge to the left hand catheter after 1 attempt(s). IV secured properly. No trauma to site. Patient tolerated procedure well.
[2019-11-30] MEDS: FUROSEMIDE 40 MG/4 ML VIAL IV SCH (05:38)
--- NOTE | 2019-11-30 06:01 | NUR ---
Linn catheter dc'd Discontinue linn catheter w/ 280 ml output noted, urine yellow and clear. Linn dc'd with clean technique following deflation of balloon. Patient tolerated well with no complaints of pain. Noted: Patient ambulate w/ assist to bathroom to urinate. Patient has no complaints.
[2019-11-30] MEDS: InsuLIN REG 1unit/0.01ml Soln (100units/ml) SC SCH ×2 (06:35→10:52)
[2019-11-30] MEDS: ACCU-CHEK COMFORT CURVE STRIP VI SCH ×2 (06:35→10:41)
[2019-11-30 07:14] LABS: Potassium 3.8 mmol/L (3.5-5.1)
[2019-11-30 07:24] LABS: BUN/Creatinine Ratio 18.3; Calcium 9.7 mg/dL (8.5-10.1)
[2019-11-30] MEDS: SACUBITRIL-VALSARTAN 24mg/26mg TAB PO SCH (08:42)
[2019-11-30] MEDS: ASPirin 81 mg TAB PO SCH (08:42)
[2019-11-30] MEDS: CARVEDILOL 3.125 MG TAB PO SCH (08:42)
[2019-11-30] MEDS: CLOPIDOGREL BISULFATE 75 MG TAB PO SCH (08:43)
[2019-11-30 09:00] VITALS: BP 145/88
--- NOTE | 2019-11-30 09:19 | NUR ---
Called and spoke to Dr. Jacinto to report pt feeling nausea and reporting antinausea medication, orders received for Zofran 4 mg IV Q4hr.
[2019-11-30] MEDS ORDERED: ONDANSETRON HCL 4 MG/2 ML VIAL IV PRN (09:30)
[2019-11-30] MEDS ORDERED: DOXY-346 PO (11:15)
--- NOTE | 2019-11-30 12:05 | NUR ---
Pt feeling better no nausea reported at this time, pt eating her lunch, pt tolerating her lunch well. Pt informed that she will be d/c today after lunch per Dr. Jacinto.
[2019-11-30 12:22] VITALS: BP 145/88
--- NOTE | 2019-11-30 12:53 | NUR ---
Called pt's daughter at [phone] to inform her that pt is discharge, discussed discharge information with daughter, pt will be orange picker at 1500.
[2019-11-30 13:00] VITALS: BP 127/67
--- NOTE | 2019-11-30 14:30 | NUR ---
Dr. Jacinto at unit to see pt.
--- NOTE | 2019-11-30 14:45 | NUR ---
Discharge instructions given as ordered. Encourage to follow up with PMD as instructed. All questions and concerns addressed. Patient verbalized understanding. Medication reconciliation form completed and copy given to patient. Home medications held in Pharmacy returned to patient, and no needed vaccines to be given. IV removed with catheter intact, pressure dressing applied. Telemetry unit returned to ICU.
--- NOTE | 2019-11-30 15:49 | NUR ---
Patient taken to vehicle via wheelchair with all personal belongings, accompanied by staff and family member. No distress noted at time of departure.
== END 2019-11-30 15:30 | disposition home or self-care (01) | DRG 291 ==
LOC: EDBD 13:58 → ER 13:58 → TELE 13:59 → TELE-WESTW 20:42
PROVIDERS: ADMIT Hospitalist; ATTEND Hospitalist
DX: I11.0 Hypertensive heart disease with heart failure (principal); J15.5 Pneumonia due to Escherichia coli; E44.1 Mild protein-calorie malnutrition; J44.0 Chronic obstructive pulmonary disease with (acute) lower respiratory infection; Z68.42 Body mass index [BMI] 45.0-49.9, adult; I50.43 Acute on chronic combined systolic (congestive) and diastolic (congestive) heart failure; I42.0 Dilated cardiomyopathy; I25.110 Atherosclerotic heart disease of native coronary artery with unstable angina pectoris; I25.5 Ischemic cardiomyopathy; E11.65 Type 2 diabetes mellitus with hyperglycemia; R09.02 Hypoxemia; K21.9 Gastro-esophageal reflux disease without esophagitis; E78.5 Hyperlipidemia, unspecified; I70.0 Atherosclerosis of aorta; M79.89 Other specified soft tissue disorders; Z95.810 Presence of automatic (implantable) cardiac defibrillator; Z98.61 Coronary angioplasty status; Z91.11 Patient's noncompliance with dietary regimen; I25.2 Old myocardial infarction; Z82.49 Family history of ischemic heart disease and other diseases of the circulatory system; Z83.3 Family history of diabetes mellitus; Z87.891 Personal history of nicotine dependence; Z90.710 Acquired absence of both cervix and uterus; Z88.0 Allergy status to penicillin; Z79.899 Other long term (current) drug therapy
CPT/HCPCS: 36415; 71045; 71275; 80048; 80053; 82962; 83735; 83880; 84443; 84484; 85025; 85379; 85610; 85730; 93005; 96361; 96374; G0378; J1815; J2405